=== PATIENT | male | born 1975 | race Caucasian/White ===

== ENCOUNTER 2020-10-23 16:27 | Emergency (ER) | payer BC ==
[~2020-10-23] VITALS: Ht 182.9 cm; Wt 81.6 kg
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
[2020-10-23] MEDS ORDERED: MORPHINE SULFATE INJ 4 MG/ML DISP.SYRIN ONE (16:54)
[2020-10-23] MEDS ORDERED: PROPOFOL 200 MG/20 ML VIAL IV ONE (17:00)
[2020-10-23] MEDS ORDERED: MORPHINE SULFATE INJ 2 MG/ML DISP.SYRIN IM ONE (17:00)
[2020-10-23] MEDS ORDERED: PROPOFOL 20 ML IV ONE (17:04)
--- NOTE | 2020-10-23 17:17 | NUR ---
timeout. md at bedside.
[2020-10-23] MEDS ORDERED: IBUPROFEN 600 MG TABLET ONE (17:56)
[2020-10-23] MEDS ORDERED: HYDROCODONE/APAP 10/325MG TABLET ONE (17:56)
[2020-10-23] MEDS ORDERED: IBUPROFEN 600 MG TABLET PO ONE (18:00)
[2020-10-23] MEDS ORDERED: HYDROCODONE/APAP 10/325MG TABLET PO ONE (18:00)
[2020-10-23] MEDS ORDERED: IBUP-1955 PO (18:06)
[2020-10-23] MEDS ORDERED: HYDR-3972 PO (18:06)
--- NOTE | 2020-10-23 18:13 | NUR ---
Patient discharged to home in stable condition. Written and verbal after care instructions given. Patient verbalizes understanding of instruction.IV removed. Catheter intact and site benign. Pressure and 4x4 applied to site. No bleeding noted. Pt ambulatory with a steady gait
[2020-10-23 18:14] VITALS: BP 159/102
== END 2020-10-23 18:15 | disposition home or self-care (01) ==
LOC: ER 16:31
DX: S49.82XA Other specified injuries of left shoulder and upper arm, initial encounter (principal); Z60.2 Problems related to living alone; W17.89XA Other fall from one level to another, initial encounter; Y93.39 Activity, other involving climbing, rappelling and jumping off; Y92.89 Other specified places as the place of occurrence of the external cause; Y99.8 Other external cause status
CPT/HCPCS: 29105; 73030; 96372; 99285; J2270; J2704